=== PATIENT | female | born 2000 | race Caucasian/White ===

== ENCOUNTER 2025-07-12 16:51 | Emergency (ER) | payer SELFPAY ==
[2025-07-12 17:04] VITALS: BP 122/81
[2025-07-12] MEDS: EMLA CREAM 2 GRAM TOPICAL (18:33)
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
== END 2025-07-12 18:44 | disposition home or self-care (01) ==
LOC: EMR 16:51
PROVIDERS: EMERGENCY PHYSICIAN Emergency Medicine; FAMILY PHYSICIAN Internal Medicine
DX: T20.06XA Burn of unspecified degree of forehead and cheek, initial encounter (principal); V59.50XA Passenger in pick-up truck or van injured in collision with unspecified motor vehicles in traffic accident, initial encounter; Y92.410 Unspecified street and highway as the place of occurrence of the external cause; Y99.0 Civilian activity done for income or pay
CPT/HCPCS: 99283